=== PATIENT | male | born 1990 | race Caucasian/White ===

== ENCOUNTER 2024-04-21 08:03 | Emergency (ER) | payer OTHER, SELFPAY ==
--- NOTE | ~2024-04-21 | XR_ITS ---
XR chest 2V DATE: 04/21/2024 08:37 INDICATION: Fever for 6 days. Shortness of breath. TECHNIQUE: PA and lateral views COMPARISON: None FINDINGS: Normal heart size. No hilar or mediastinal enlargement. No pulmonary infiltrate or consolid ation, pleural effusion or pulmonary vascular congestion or pneumothorax. Included skeletal structures are unremarkable. IMPRESSION: Negative chest Reviewed, dictated and finalized at location A. IMPRESSION: Negative chest
[2024-04-21 08:18] VITALS: BP 113/85; PULSE 115; RESP 16; TEMP 36.7; O2SAT 99
--- NOTE | 2024-04-21 08:19 | ED.URI ---
HPI - URI/Sore Throat General Chief Complaint: Upper Respiratory Infection Stated Complaint: fever, weakness, shortness of breath Time Seen by Provider: 04/21/24 08:19 Source: patient Mode of arrival: ambulatory Limitations: no limitations History of Present Illness HPI Narrative: 33 y/o male presented for c/o fever up to 103.6 for one week. Endorses generalized weakness and body aches, mild decreased appetite. Denies sore throat, head congestion, cough, n/v. Taking tylenol and ibuprofen. Denies known sick contacts. Tested negative for covid 4 days ago. Related Data Home Medications Medication Instructions Recorded Confirmed No Home Medications 04/21/24 04/21/24 Allergies Allergy/AdvReac Type Severity Reaction Status Date / Time No Known Allergies Allergy Verified 04/21/24 08:15 Review of Systems Review of Systems: CONSTITUTIONAL: reports body aches, fever, chills, or sweats. EYES: Denies visual changes, redness, or discharge. ENT: Denies rhinorrhea, congestion, sore throat, or otalgia. CARDIOVASCULAR: Denies chest pain, palpitations, or edema. RESPIRATORY: Denies cough or dyspnea. GASTROINTESTINAL: Denies abdominal pain, nausea, vomiting, or diarrhea. GENITOURINARY: Denies dysuria or hematuria. SKIN: Denies rash, itching, or wounds. MUSCULOSKELETAL: Denies back pain, joint pain NEUROLOGIC: Denies headache, numbness, tingling All systems reviewed & are unremarkable except as noted in HPI and below PMFSH Comments At time of signature, I have reviewed and agree with nursing past medical, surgical, social and family history unless otherwise noted. Please see nursing chart for further information. There is no relevant family history pertinent to the presenting complaint Exam Narrative: GENERAL: Well-appearing, well-nourished, and in no acute distress. HEAD: Normocephalic, atraumatic. EYES: EOMI. No redness or drainage. Conjunctivae normal. ENT: Mucous membranes pink and moist. No rhinorrhea. TMs normal bilaterally. Throat normal. Uvula midline. NECK: Normal AROM. Supple. No lymphadenopathy. CHEST: No respiratory distress. Clear to auscultation. HEART: Regular rate and rhythm. No murmur appreciated. Normal peripheral pulses. ABDOMEN: Soft, nontender, nondistended, normal active bowel sounds. EXTREMITIES: Normal range of motion. No edema. SKIN: Warm, dry, no rash. Capillary refill normal. Normal skin turgor. NEURO: No focal deficits. Alert and oriented x3. Gait steady. PSYCH: Normal affect. Course Course Emergency Course: Patient is aware of diagnosis, understands and agrees to treatment plan. Anticipatory guidance given. Patient agrees to follow-up as directed and is aware of reasons to seek care at the emergency department. Portions of this record may have been created with voice recognition software Level of Care: Express Care Visit Vital Signs Vital signs: Vital Signs Temperature 98.1 F 04/21/24 08:18 Pulse Rate 115 H 04/21/24 08:18 Respiratory Rate 16 04/21/24 08:18 Blood Pressure 113/85 04/21/24 08:18 Pulse Oximetry 99 04/21/24 08:18 Temperature 98.1 F 04/21/24 08:18 Pulse Rate 115 H 04/21/24 08:18 Respiratory Rate 16 04/21/24 08:18 Blood Pressure 113/85 04/21/24 08:18 Pulse Oximetry 99 04/21/24 08:18 MDM - URI/Sore Throat MDM Narrative Medical decision making narrative: Results of neg flu, covid and strep reviewed with pt neg CXR reviewed with pt Discussed physical exam findings. Advised supportive measures and signs/symptoms to go to the ER. Pt is appropriate for outpt treatment and f/u with pcp Tuesday. Differential Diagnosis Differential diagnosis: Likely upper respiratory infection, otitis media, sinusitis, viral infection, bronchitis, influenza and pharyngitis Lab Data Labs: Lab Results 04/21/24 Range/Units 08:29 POC SARS CoV-2 Ag Negative (Negative) Influenza A Screen Negative
== END 2024-04-21 09:03 | disposition home or self-care (01) ==
PROVIDERS: Emergency Provider Nurse Practitioner Family
DX: B34.9 Viral infection, unspecified (principal); Z20.822 Contact with and (suspected) exposure to COVID-19
CPT/HCPCS: 71046; 87081; 87426; 87804; 87880; 99213; G0463